=== PATIENT | female | born 1990 | race Caucasian/White ===

== ENCOUNTER 2022-06-24 08:30 | Emergency (ER) | payer SELFPAY ==
[~2022-06-24] VITALS: Ht 160 cm; Wt 71.4 kg
[2022-06-24 08:50] VITALS: BP 119/88
[2022-06-24 09:11] LABS: Basophils # (auto) 0.1 10 ^3/uL (0-0.2); Basophils % (auto) 0.6 % (0.0-2.0); Eosinophils # (auto) 0 10 ^3/uL (0-0.8); Eosinophils % (auto) 0.2 % (0.0-7.0); Hematocrit 42.4 % (36.0-46.0); Hemoglobin 13.7 g/dL (12.2-16.2); Lymphocytes # (auto) 3.1 10 ^3/uL (0.4-5.4); Lymphocytes % (auto) 25.3 % (10.0-50.0); Mean Corpuscular Hemoglobin 26.6 pg (28.0-32.0); Mean Corpuscular Hgb Conc. 32.4 g/dL (32.0-36.0); Monocytes # (auto) 0.7 10 ^3/uL (0-1.3); Monocytes % (auto) 5.9 % (0.0-12.0); Neutrophils # (auto) 8.3 10 ^3/uL (1.6-8.6); Nucleated Red Blood Cells % 0.1 %; Red Blood Cells 5.17 10^6/uL (4.0-5.20); White Blood Cell 12.1 10^3/uL (4.4-10.8)
[2022-06-24 09:26] LABS: Urine Bacteria FEW /hpf (None Seen); Urine Blood 1+ /uL (Negative); Urine Mucus FEW (None Seen); Urine Specific Gravity 1.031 (1.001-1.035); Urine WBC 2 /hpf (0 - 5)
[2022-06-24 09:31] LABS: BUN/Creatinine Ratio 7.2; Calcium 8.6 mg/dL (8.5-10.1); Potassium 3.6 mmol/L (3.5-5.1)
[2022-06-24] MEDS ORDERED: NITR-87 PO (10:49)
== END 2022-06-24 10:51 | disposition home or self-care (01) ==
LOC: ER 08:30
DX: O20.0 Threatened abortion (principal); O23.41 Unspecified infection of urinary tract in pregnancy, first trimester; Z3A.01 Less than 8 weeks gestation of pregnancy
CPT/HCPCS: 36415; 76801; 80048; 81001; 84702; 85025

== ENCOUNTER 2022-07-25 15:51 | Emergency (ER) | payer MEDICAID, OTHER ==
[~2022-07-25 15:51] MED LIST: NITR-87 PO
== END 2022-07-25 16:45 | disposition left against medical advice (07) ==
LOC: ER 15:51
DX: O20.0 Threatened abortion (principal); Z53.21 Procedure and treatment not carried out due to patient leaving prior to being seen by health care provider; Z3A.12 12 weeks gestation of pregnancy